=== PATIENT | male | born 1975 | race Caucasian/White ===

== ENCOUNTER 2018-10-29 12:06 | Emergency (ER) | payer MEDICAID | END 2018-10-29 16:01 | disposition home or self-care (01) | LOC: E/R 12:06 | DX: L97.512 Non-pressure chronic ulcer of other part of right foot with fat layer exposed (principal); F17.210 Nicotine dependence, cigarettes, uncomplicated | CPT/HCPCS: 73630; 82962; 99283-25 ==

== ENCOUNTER 2019-01-07 12:33 | Emergency (ER) | payer SELFPAY, OTHER, MEDICAID ==
[2019-01-07] MEDS: SOD CHLORIDE 0.9% 1,000 ML IV (13:50)
[2019-01-07] MEDS: LORAZEPAM 2 MG INJ IV (13:50)
== END 2019-01-07 15:33 | disposition home or self-care (01) ==
LOC: E/R 12:33
DX: F11.23 Opioid dependence with withdrawal (principal); F17.210 Nicotine dependence, cigarettes, uncomplicated; R42 Dizziness and giddiness
CPT/HCPCS: 93005; 96374; 99284-25